=== PATIENT | female | born 1980 | race Caucasian/White ===

== ENCOUNTER → 2017-05-26 | Outpatient (CLI) | payer OTHER ==
[~2017-05-26] MED LIST: PROAIR HFA8.5 GM
== END ==
LOC: ULTRA 16:26
DX: R22.9 Localized swelling, mass and lump, unspecified (principal)

== ENCOUNTER → 2020-08-09 | Outpatient (CLI) | payer BC, OTHER | LOC: SJCVCIMAG 09:01 | PROVIDERS: ATTEND Internal Medicine | DX: R01.1 Cardiac murmur, unspecified (principal); R00.2 Palpitations ==